=== PATIENT | female | born 1965 | race Caucasian/White ===

== ENCOUNTER 2023-10-03 00:34 | Emergency (ER) | payer OTHER ==
[2023-10-03] MEDS ORDERED: HYDROCODONE/APAP 10/325 TAB ONE ×2 (01:18→03:18)
[2023-10-03] MEDS ORDERED: methocarbamoL 500 MG TAB ONE (01:19)
[2023-10-03] MEDS ORDERED: IBUPROFEN 400 MG TAB ONE (01:19)
[2023-10-03] MEDS ORDERED: ONDANSETRON 4 MG (ODT) TAB ONE (01:19)
--- NOTE | 2023-10-03 03:17 | EDPHYS ---
Physician Documentation [facility] Name: Annette Sidhu Age: 57 yrs Sex: Female : 1965 Arrival Date: 10/03/2023 Time: 00:34 Bed 13 Private MD: ED Physician Franko Valenzuela HPI: 10/02 00:50 This 57 yrs old Female presents to ER via Unassigned with complaints of Fall sp4 Injury, Wrist Injury, Knee Pain. 06:00 Patient presents with acute fall secondary to buckling of the left knee. Patient fell sp4 in the camper sustaining injury to the right wrist. Patient complains of left knee pain, Right wrist pain swelling and deformity, . Historical: - Allergies: 01:03 PENICILLINS; pf1 - PMHx: 01:03 None; pf1 - PSHx: 01:03 Total abdominal hysterectomy; gastric sleeve; pf1 01:03 bilateral carpal tunnel; pf1 - Immunization history:: Adult Immunizations up to date, Client reports having NOT received the Covid vaccine. Last tetanus immunization: > 10 years ago Flu vaccine is not up to date. - Infectious Disease History:: Denies. - Social history:: Smoking status: Patient denies any tobacco usage or history of. Patient uses alcohol, occasionally. Patient/guardian denies using street drugs. - Family history:: not pertinent. ROS: 06:00 Constitutional: Negative for fever, chills, and weight loss, positive Right wrist sp4 pain, positive left knee pain 06:00 All other systems are negative, Exam: 06:00 Constitutional: This is a well developed, well nourished patient who is awake, alert, sp4 and in no acute distress. Head/Face: Normocephalic, atraumatic. Eyes: Pupils equal round and reactive to light, extra-ocular motions intact. Lids and lashes normal. Conjunctiva and sclera are not injected. Cornea within normal limits. Periorbital areas with no swelling, redness, or edema. ENT: Nares patent. No nasal discharge, no septal abnormalities noted. Tympanic membranes are normal and external auditory canals are clear. Oropharynx with no redness, swelling, or masses, exudates, or evidence of obstruction, uvula midline. Mucous membranes moist. Neck: Trachea midline, no thyromegaly or masses palpated, and no cervical lymphadenopathy. Supple, full range of motion without nuchal rigidity, or vertebral point tenderness. Chest/axilla: Normal chest wall appearance and motion. Nontender with no deformity. No lesions are appreciated. Cardiovascular: Regular rate and rhythm with a normal S1 and S2. No gallops, murmurs, or rubs. Normal PMI, no JVD. No pulse deficits. Respiratory: Lungs have equal breath sounds bilaterally, clear to auscultation and percussion. No rales, rhonchi or wheezes noted. No increased work of breathing, no retractions or nasal flaring. Abdomen/GI: Soft, with normal bowel sounds. No distension or tympany. No guarding or rebound. No evidence of tenderness throughout. Back: No spinal tenderness. No costovertebral tenderness. Skin: Warm, dry with normal turgor. Normal color with no rashes, no lesions, and no evidence of cellulitis. MS/ Extremity: Pulses equal, no cyanosis. Neurovascular intact. Full, normal range of motion. Positive R wrist pain, tenderness, swelling , no significant angulation. Preserved peripheral pulses. His left knee contusion and small hematoma. No effusion, limp with ambulation Neuro: Awake and alert, GCS 15, oriented to person, place, time, and situation. Cranial nerves II-XII grossly intact. Motor strength 5/5 in all extremities. Sensory grossly intact. Psych: Awake, alert, with orientation to person, place and time. Behavior, mood, and affect are within normal limits Vital Signs: 00:56 BP 111 / 65; Pulse 79; Resp 16; Temp 98.1; Pulse Ox 98% on R/A; Weight 90.72 kg; Height pf1 5 ft. 5 in. ; Pain 8/10; 01:30 BP 109 / 63; Pulse 59; Resp 18 S; Pulse Ox 100% on R/A; jw7 02:30 BP 110 / 59; Pulse 63; Resp 16 S; Pulse Ox 99% on R/A; jw7 03:33 BP 115 / 62; Pulse 65; Resp 16 S; Pulse Ox 99% on R/A; jw7 00:56 Body Mass Index 33.28 (90.72 kg, 165.1 cm) pf1 00:56 Pain Scale: Adult pf1 Bunny Coma Score: 06:00 Eye Response: spontaneous(4). Motor Response: obeys commands(6). Verbal Response: sp4 oriented(5). Total: 15. Procedures: 03:12 Splinting: Splint applied to dorsal aspect of right forearm, right wrist, right hand sp4 and palmar aspect of right forearm using Orthoglass splint, applied by myself. Examined by me, post splint application: neurovascular intact, 2+ distal pulses palpable, brisk capillary refill noted, Patient tolerated well. MDM: 00:57 Patient medically screened. sp4 03:12 Differential diagnosis: abrasion, fracture, laceration, multiple trauma, sprain, sp4 strain. Data reviewed: vital signs, nurses notes, radiologic studies, plain films. ED course: Was applied and a sling was applied. At this time the wrist fracture is nondisplaced and does not require reduction. Will recommend follow-up with orthopedist BOONE for definitive treatment. . 10/02 00:56 Order name: Knee Left 3 View XRAY sp4 10/02 00:56 Order name: Hand Right 3 View XRAY sp4 10/02 00:56 Order name: Forearm Right XRAY sp4 10/02 01:30 Order name: Ice pack; Complete Time: 01:30 pf1 10/02 02:47 Order name: Splint - Sugar Tong - Forearm; Complete Time: 03:03 sp4 10/02 02:47 Order name: Sling; Complete Time: 03:31 sp4 Administered Medications: 01:20 Drug: Ibuprofen PO 800 mg PO once Route: PO; pf1 03:03 Follow up: Response: No adverse reaction; Marked relief of symptoms; Pain is decreased jw7 01:20 Drug: [place] PO 10 mg-325 mg 1 tabs PO once Route: PO; pf1 03:03 Follow up: Response: No adverse reaction; Marked relief of symptoms; Pain is decreased jw7 01:20 Drug: Ondansetron PO 4 mg PO once Route: PO; pf1 03:03 Follow up: Response: No adverse reaction; Marked relief of symptoms jw7 01:20 Drug: Methocarbamol PO 1500 mg PO once Route: PO; pf1 03:03 Follow up: Response: No adverse reaction; Marked relief of symptoms jw7 03:15 Drug: [place] PO 10 mg-325 mg 1 tabs PO once Route: PO; jw7 03:31 Follow up: Response: No adverse reaction; Medication administered at discharge. jw7 Disposition Summary: 10/03/23 03:17 Discharge Ordered Notes: Location: Home sp4 Problem: new sp4 Symptoms: have improved sp4 Condition: Stable sp4 Diagnosis - Unspecified fracture of the lower end of right radius sp4 - Transverse impacted distal right radius fracture sp4 - Left knee sprain, left knee contusion sp4 Followup: sp4 - With: Private Physician - When: 2 - 3 days - Reason: Recheck today's complaints Discharge Instructions: - Discharge Summary Sheet sp4 - Wrist Fracture Treated With Immobilization, [id number] sp4 Forms: - Patient Portal Instructions sp4 Prescriptions: - methocarbamol 750 mg Oral tablet - take 2 tablets ORAL route every 8 hours for 2 days PRN muscle soreness; 60 sp4 tablet; Refills: 0, Product Selection Permitted Signatures: Dispatcher [employer] SAMIAMS [place] Young RN RN jw7 June Simon RN RN pf1 Franko Valenzuela MD MD sp4 Corrections: (The following items were deleted from the chart) 06:01 06:00 Patient presents with acute fall secondary to buckling of the left knee. Patient sp4 fell in the camper sustaining injury to the right wrist. Patient complains of left knee pain, left wrist pain swelling and deformity, . sp4
--- NOTE | 2023-10-03 03:17 | ER ---
Nurse's Notes [facility] Name: Annette Sidhu Age: 57 yrs Sex: Female : 1965 Arrival Date: 10/03/2023 Time: 00:34 Bed 13 Private MD: Diagnosis: Unspecified fracture of the lower end of right radius;Transverse impacted distal right radius fracture;Left knee sprain, left knee contusion Presentation: 10/02 00:56 Chief complaint: Patient states: right wrist pain of 8 with swelling and left knee pf1 pain, S/P fall while walking up the steps into [employer] [place] then fell off and landed onto right side on the grass,onset 2200. Patient denies any head injury. Coronavirus screen: Vaccine status: Patient reports being unvaccinated. Client denies travel out of the [place] in the last 14 days. At this time, the client does not indicate any symptoms associated with coronavirus-19. Ebola Screen: Patient negative for fever greater than or equal to 101.5 degrees Fahrenheit, and additional compatible Ebola Virus Disease symptoms. Initial Sepsis Screen: Does the patient meet any 2 criteria? No. Patient's initial sepsis screen is negative. Does the patient have a suspected source of infection? No. Patient's initial sepsis screen is negative. Risk Assessment: Do you want to hurt yourself or someone else? Patient reports no desire to harm self or others. Onset of symptoms was October 02, 2023 at 22:00. 00:56 Method Of Arrival: Wheelchair pf1 00:56 Acuity: FORD 4 pf1 Triage Assessment: 01:04 General: Appears in no apparent distress. uncomfortable, well groomed, well developed, pf1 Behavior is calm, cooperative, appropriate for age, quiet. Pain: Complains of pain in right wrist and left knee Pain currently is 8 out of 10 on a pain scale. Pain began 2200. Musculoskeletal: Capillary refill < 3 seconds, Swelling present in right wrist Reports pain in left knee and right wrist. Historical: - Allergies: 01:03 PENICILLINS; pf1 - PMHx: 01:03 None; pf1 - PSHx: 01:03 Total abdominal hysterectomy; gastric sleeve; pf1 01:03 bilateral carpal tunnel; pf1 - Immunization history:: Adult Immunizations up to date, Client reports having NOT received the Covid vaccine. Last tetanus immunization: > 10 years ago Flu vaccine is not up to date. - Infectious Disease History:: Denies. - Social history:: Smoking status: Patient denies any tobacco usage or history of. Patient uses alcohol, occasionally. Patient/guardian denies using street drugs. - Family history:: not pertinent. Screenin:10 [facility] ED Fall Risk Assessment (Adult) History of falling in the last 3 months, jw7 including since admission Yes- single mechanical fall (1 pt) Confusion or Disorientation No (0 pts) Intoxicated or Sedated No (0 pts) Impaired Gait No (0 pts) Mobility Assist Device Used No (0 pt) Altered Elimination No (0 pt) Score/Fall Risk Level 0 - 2 = Low Risk Oriented to surroundings, Maintained a safe environment, Educated pt \T\ family on fall prevention, incl call for assistance when getting out of bed. Abuse screen: Denies threats or abuse. Denies injuries from another. Nutritional screening: No deficits noted. Tuberculosis screening: No symptoms or risk factors identified. Assessment: 01:10 General: Appears in no apparent distress. uncomfortable, Behavior is calm, cooperative. jw7 01:10 Pain: Complains of pain in Right wrist and Left Knee Pain does not radiate. Pain jw7 currently is 8 out of 10 on a pain scale. Quality of pain is described as aching, throbbing, Pain began 3 hours ago. Is continuous, Noted to be guarding, resistant to movement. Neuro: Level of Consciousness is awake, alert, obeys commands, Oriented to person, place, time, situation. Cardiovascular: Capillary refill < 3 seconds Clubbing of nail beds is absent JVD is absent Patient's skin is warm and dry. Respiratory: Airway is patent Trachea midline Respiratory effort is even, unlabored, Respiratory pattern is regular, symmetrical, Breath sounds are clear bilaterally. GI: Abdomen is round non-distended, Bowel sounds present X 4 quads. Abd is soft and non tender X 4 quads. : No deficits noted. No signs and/or symptoms were reported regarding the genitourinary system. EENT: No deficits noted. No signs and/or symptoms were reported regarding the EENT system. Derm: Skin is intact, is healthy with good turgor, Skin is dry, Skin is normal, Skin temperature is warm. Musculoskeletal: Circulation, motion, and sensation intact. Range of motion: limited in left knee and right wrist Reports pain in right wrist and left knee. 02:05 Reassessment: Patient appears in no apparent distress at this time. No changes from jw7 previously documented assessment. Patient and/or family updated on plan of care and expected duration. Pain level reassessed. Patient is alert, oriented x 3, equal unlabored respirations, skin warm/dry/pink. 03:00 Reassessment: Patient appears in no apparent distress at this time. Patient and/or jw7 family updated on plan of care and expected duration. Pain level reassessed. Patient is alert, oriented x 3, equal unlabored respirations, skin warm/dry/pink. Patient states symptoms have improved. Vital Signs: 00:56 BP 111 / 65; Pulse 79; Resp 16; Temp 98.1; Pulse Ox 98% on R/A; Weight 90.72 kg; Height pf1 5 ft. 5 in. ; Pain 8/10; 01:30 BP 109 / 63; Pulse 59; Resp 18 S; Pulse Ox 100% on R/A; jw7 02:30 BP 110 / 59; Pulse 63; Resp 16 S; Pulse Ox 99% on R/A; jw7 03:33 BP 115 / 62; Pulse 65; Resp 16 S; Pulse Ox 99% on R/A; jw7 00:56 Body Mass Index 33.28 (90.72 kg, 165.1 cm) pf1 00:56 Pain Scale: Adult pf1 Bunny Coma Score: 06:00 Eye Response: spontaneous(4). Motor Response: obeys commands(6). Verbal Response: sp4 oriented(5). Total: 15. ED Course: 00:38 Patient arrived in ED. gm2 00:50 Franko Valenzuela MD is Attending Physician. sp4 01:03 Triage completed. pf1 01:05 Arm band placed on left wrist. pf1 01:10 Patient has correct armband on for positive identification. Bed in low position. Call jw7 light in reach. 01:10 Provided Education on: Use of Call Light. jw7 01:52 Knee Left 3 View XRAY In Process Unspecified. EDMS 01:52 Hand Right 3 View XRAY In Process Unspecified. EDMS 01:52 Forearm Right XRAY In Process Unspecified. EDMS 02:01 Waits, [place], RN is Primary Nurse. jw7 03:00 Assist provider with fracture care of right wrist Fracture is closed. Obvious deformity jw7 is not noted. Circulation, motor and sensation is intact. Set up for procedure. Performed by Franko Valenzuela MD Immobilized with preformed splint, Post immobilization, circulation, motor and sensation remain intact. Patient tolerated well. 03:33 Patient did not have IV access during this emergency room visit. jw7 Administered Medications: 01:20 Drug: Ibuprofen PO 800 mg PO once Route: PO; pf1 03:03 Follow up: Response: No adverse reaction; Marked relief of symptoms; Pain is decreased jw7 01:20 Drug: [place] PO 10 mg-325 mg 1 tabs PO once Route: PO; pf1 03:03 Follow up: Response: No adverse reaction; Marked relief of symptoms; Pain is decreased jw7 01:20 Drug: Ondansetron PO 4 mg PO once Route: PO; pf1 03:03 Follow up: Response: No adverse reaction; Marked relief of symptoms jw7 01:20 Drug: Methocarbamol PO 1500 mg PO once Route: PO; pf1 03:03 Follow up: Response: No adverse reaction; Marked relief of symptoms jw7 03:15 Drug: Girard PO 10 mg-325 mg 1 tabs PO once Route: PO; jw7 03:31 Follow up: Response: No adverse reaction; Medication administered at discharge. jw7 Medication: 03:33 VIS not applicable for this client. jw7 Outcome: 03:17 Discharge ordered by . sp4 03:32 Discharged to home ambulatory, jw7 03:32 Condition: stable 03:32 Discharge instructions given to patient, Instructed on discharge instructions, follow up and referral plans. medication usage, Demonstrated understanding of instructions, follow-up care, medications, Prescriptions given X 1, 03:34 Patient left the ED. jw7 Signatures: Dispatcher [employer] EDNJ [place] Young RN RN jw7 June Simon RN RN pf1 Franko Valenzuela MD MD sp4 Chantell [facility]
[2023-10-03 11:55] VITALS: BP 115/62; TEMP 98.1; O2SAT 99
--- NOTE | 2023-10-03 20:44 | RAD REPORT ---
EXAM DESCRIPTION: RAD - Forearm Right - 10/03/2023 1:50 am CLINICAL HISTORY: 57 years Female, DEFORMITY COMPARISON: None. IMPRESSION: Impacted fracture of the distal radius. Radiocarpal joint space narrowing. Osteopenia. Soft tissue swelling. Electronically signed by: Ernesto Palacios DO 10/03/2023 02:20 AM CDT Due to temporary technical issues with the PACS/Fluency reporting system, reports are being signed by the in house radiologists without review as a courtesy to insure prompt reporting. The interpreting radiologist is fully responsible for the content of the report.
--- NOTE | 2023-10-03 20:45 | RAD REPORT ---
EXAM DESCRIPTION: RAD - Knee Left 3 View - 10/03/2023 1:50 am CLINICAL HISTORY: 57 years Female, PAIN COMPARISON: None. IMPRESSION: No fracture or dislocation. Joint spaces are preserved. Bone mineralization is normal. Infrapatellar swelling. No joint effusion. Electronically signed by: Ernesto Palacios DO 10/03/2023 02:23 AM CDT Due to temporary technical issues with the PACS/Fluency reporting system, reports are being signed by the in house radiologists without review as a courtesy to insure prompt reporting. The interpreting radiologist is fully responsible for the content of the report.
--- NOTE | 2023-10-03 20:46 | RAD REPORT ---
EXAM DESCRIPTION: RAD - Hand Right 3 View - 10/03/2023 1:50 am CLINICAL HISTORY: 57 years Female, DEFORMITY COMPARISON: None. IMPRESSION: Impacted fracture of the distal radius. Radiocarpal joint space narrowing. Osteopenia. Soft tissue swelling. Electronically signed by: Ernesto Palacios DO 10/03/2023 02:20 AM CDT Due to temporary technical issues with the PACS/Fluency reporting system, reports are being signed by the in house radiologists without review as a courtesy to insure prompt reporting. The interpreting radiologist is fully responsible for the content of the report.
== END 2023-10-03 03:34 | disposition home or self-care (01) ==
LOC: ER 00:34
PROC: 2W3CX1Z Immobilization of Right Lower Arm using Splint (ICD-10-PCS; principal; 2023-10-03)
DX: S52.591A Other fractures of lower end of right radius, initial encounter for closed fracture (principal); S83.92XA Sprain of unspecified site of left knee, initial encounter; S80.02XA Contusion of left knee, initial encounter; W18.30XA Fall on same level, unspecified, initial encounter; Z88.0 Allergy status to penicillin
CPT/HCPCS: 73130; 73090; 73562; 99284; 29125; Q0162